=== PATIENT | male | born 1965 | race Caucasian/White ===

== ENCOUNTER → 2021-03-01 | Outpatient (CLI) | payer OTHER ==
[~2021-03-01] MED LIST: ADDERALL 15 MG15 MG PO; AUGMENTIN 875875 MG PO; CELEXA40 MG PO; IBUPROFEN 800800 M1 PO; KEFLEX500 MG PO; LEVAQUIN 750 M750 MG PO; OMEPRAZOLE 20 M20 M1 PO; PERCOCET 5-3251 EACH PO; PERCOCET 7.5-31 EACH PO; TRAMADOL 50 MG50 MG PO; WELLBUTRIN 75 M75 M1 PO; XANAX 0.5 MG0.5 MG
== END ==
LOC: M.ULTRA 15:00
PROVIDERS: ATTEND Family Medicine
DX: M79.89 Other specified soft tissue disorders (principal); M79.661 Pain in right lower leg